=== PATIENT | female | born 1990 | race Two or more races ===

== ENCOUNTER 2022-10-27 10:04 | Observation (INO) | payer MEDICAID ==
[~2022-10-27 10:04] MED LIST: PREN-96 PO
== END 2022-10-27 12:00 | disposition home or self-care (01) ==
LOC: LDRP 10:04 → UNDOADMOB 10:04 → LDRP 10:35 → UNDODISOB 12:00
PROVIDERS: ADMIT Obstetrics & Gynecology; ATTEND Obstetrics & Gynecology
DX: O24.414 Gestational diabetes mellitus in pregnancy, insulin controlled (principal); Z3A.34 34 weeks gestation of pregnancy; Z79.4 Long term (current) use of insulin
CPT/HCPCS: 59025; 76818; 81002; 82948; G0378

== ENCOUNTER 2022-10-30 11:05 | Observation (INO) | payer MEDICAID | END 2022-10-30 12:22 | disposition home or self-care (01) | LOC: LDRP 11:05 | PROVIDERS: ADMIT Obstetrics & Gynecology; ATTEND Obstetrics & Gynecology | DX: O24.419 Gestational diabetes mellitus in pregnancy, unspecified control (principal); O99.323 Drug use complicating pregnancy, third trimester; F12.90 Cannabis use, unspecified, uncomplicated; Z3A.34 34 weeks gestation of pregnancy | CPT/HCPCS: 59025; 76818; 81002; 82948; 82962; 94760; G0378 ==

== ENCOUNTER 2022-11-03 14:03 | Observation (INO) | payer MEDICAID ==
[2022-11-03] MEDS ORDERED: INSU1INJ19 SC (17:27)
== END 2022-11-03 17:42 | disposition home or self-care (01) ==
LOC: LDRP 16:09 → UNDOADMOB 16:12
PROVIDERS: ADMIT Obstetrics & Gynecology; ATTEND Obstetrics & Gynecology
DX: O24.414 Gestational diabetes mellitus in pregnancy, insulin controlled (principal); Z3A.35 35 weeks gestation of pregnancy
CPT/HCPCS: 59025; 76818; 81002; 82948; 82962; G0378

== ENCOUNTER → 2022-11-04 | Outpatient (CLI) | payer MEDICAID ==
[~2022-11-04] MED LIST changes: +INSU1INJ19 SC
[2022-11-04 10:27] LABS: Basophils # (auto) 0 10 ^3/uL (0-0.2); Basophils % (auto) 0.1 % (0.0-2.0); Eosinophils # (auto) 0.1 10 ^3/uL (0-0.8); Eosinophils % (auto) 0.6 % (0.0-7.0); Hematocrit 35.5 % (36.0-46.0); Hemoglobin 11.7 g/dL (12.2-16.2); Lymphocytes # (auto) 2.5 10 ^3/uL (0.4-5.4); Lymphocytes % (auto) 27.2 % (10.0-50.0); Mean Corpuscular Hemoglobin 29.2 pg (28.0-32.0); Mean Corpuscular Hgb Conc. 33.1 g/dL (32.0-36.0); Mean Corpuscular Volume 88.5 fL (80.0-100.0); Monocytes # (auto) 0.4 10 ^3/uL (0-1.3); Monocytes % (auto) 4.2 % (0.0-12.0); Neutrophils # (auto) 6.3 10 ^3/uL (1.6-8.6); Neutrophils % (auto) 67.9 % (37.0-80.0); Nucleated Red Blood Cells % 0.1 %; Red Blood Cells 4.02 10^6/uL (4.0-5.20); Red Cell Distribution Width 13.3 % (11.8-14.3); White Blood Cell 9.2 10^3/uL (4.4-10.8)
[2022-11-05 07:07] LABS: RPR Non Reactive (Non Reactive)
== END | disposition home or self-care (01) ==
LOC: LAB 10:17
PROVIDERS: ATTEND Obstetrics & Gynecology
DX: Z34.83 Encounter for supervision of other normal pregnancy, third trimester (principal); Z3A.36 36 weeks gestation of pregnancy
CPT/HCPCS: 36415; 84112; 85025; 86592

== ENCOUNTER 2022-11-18 09:10 | Observation (INO) | payer MEDICAID | END 2022-11-18 10:30 | disposition home or self-care (01) | LOC: UNDOADMOB 09:10 → LDRP 09:10 → UNDODISOB 10:30 | PROVIDERS: ADMIT Obstetrics & Gynecology; ATTEND Obstetrics & Gynecology | DX: O24.419 Gestational diabetes mellitus in pregnancy, unspecified control (principal); O99.323 Drug use complicating pregnancy, third trimester; F12.90 Cannabis use, unspecified, uncomplicated; Z3A.37 37 weeks gestation of pregnancy | CPT/HCPCS: 59025; 81002; 82948; 82962; 94760; G0378 ==

== ENCOUNTER 2022-11-21 09:05 | Observation (INO) | payer MEDICAID | END 2022-11-21 10:58 | disposition home or self-care (01) | LOC: LDRP 09:05 | PROVIDERS: ADMIT Obstetrics & Gynecology; ATTEND Obstetrics & Gynecology | DX: O24.419 Gestational diabetes mellitus in pregnancy, unspecified control (principal); O99.323 Drug use complicating pregnancy, third trimester; F12.90 Cannabis use, unspecified, uncomplicated; Z3A.37 37 weeks gestation of pregnancy | CPT/HCPCS: 59025; 76818; 81002; 82948; 82962; 94760; G0378 ==

== ENCOUNTER 2022-11-24 08:06 | Observation (INO) | payer MEDICAID | END 2022-11-24 10:30 | disposition home or self-care (01) | LOC: UNDOADMOB 09:09 → LDRP 09:09 → UNDODISOB 10:30 | PROVIDERS: ADMIT Obstetrics & Gynecology; ATTEND Obstetrics & Gynecology | DX: O24.419 Gestational diabetes mellitus in pregnancy, unspecified control (principal); O99.323 Drug use complicating pregnancy, third trimester; F12.90 Cannabis use, unspecified, uncomplicated; Z3A.38 38 weeks gestation of pregnancy | CPT/HCPCS: 59025; 76818; 81002; 82948; 82962; 94760; G0378 ==

== ENCOUNTER 2022-11-26 07:51 | Observation (INO) | payer MEDICAID | END 2022-11-26 10:49 | disposition home or self-care (01) | LOC: UNDOADMOB 09:24 → LDRP 09:24 | PROVIDERS: ADMIT Obstetrics & Gynecology; ATTEND Obstetrics & Gynecology | DX: O24.414 Gestational diabetes mellitus in pregnancy, insulin controlled (principal); O99.323 Drug use complicating pregnancy, third trimester; F12.90 Cannabis use, unspecified, uncomplicated; Z3A.38 38 weeks gestation of pregnancy; Z79.4 Long term (current) use of insulin | CPT/HCPCS: 59025; 76818; 81002; 82948; 82962; 94760; G0378 ==

== ENCOUNTER 2022-11-29 07:00 | Observation (INO) | payer MEDICAID | END 2022-11-29 08:16 | disposition home or self-care (01) | LOC: LDRP 07:00 | PROVIDERS: ADMIT Obstetrics & Gynecology; ATTEND Obstetrics & Gynecology | DX: O24.419 Gestational diabetes mellitus in pregnancy, unspecified control (principal); O99.323 Drug use complicating pregnancy, third trimester; F12.90 Cannabis use, unspecified, uncomplicated; Z3A.39 39 weeks gestation of pregnancy; Z91.040 Latex allergy status | CPT/HCPCS: 59025; 76818; 81002; 82948; 82962; 94760; G0378 ==

== ENCOUNTER 2022-12-01 07:01 | Inpatient (IN) | payer MEDICAID ==
[~2022-12-01] VITALS: Ht 157.5 cm; Wt 105.2 kg
[2022-12-01] MEDS ORDERED: LIDOCAINE 2%HCL (LOCAL ANESTH.) INJ 20ML MDV IJ PRN (07:30)
[2022-12-01] MEDS ORDERED: LACT. RINGERS/OXYTOCIN 20UNITS 500 ML IV ONE ×2 (07:30→08:00)
[2022-12-01] MEDS ORDERED: TERBUTALINE SULFATE 1 MG/ML 1ML VIAL SC PRN (07:30)
[2022-12-01] MEDS ORDERED: PHISODERM TOP SOLN 240ML BTL TOP PRN (07:30)
[2022-12-01] MEDS ORDERED: WITCH HAZEL-GLYCERIN PAD TOP PRN (07:30)
[2022-12-01] MEDS ORDERED: PROMETHAZINE HCL 25 MG/ML 1ML IM PRN (07:30)
[2022-12-01] MEDS ORDERED: PROMETHAZINE HCL 25 MG/ML 1ML IV PRN (07:30)
[2022-12-01] MEDS ORDERED: DERMOPLAST 60ML BOTTLE TOP PRN (07:30)
[2022-12-01] MEDS ORDERED: BUTORPHANOL TARTRATE 2 MG/1 ML VIAL IV PRN ×2 (07:30)
[2022-12-01] MEDS: miSOPROStol 50 MCG per PRE-CUT 1/2 TAB PO PRN ×4 (07:44→20:44)
[2022-12-01 07:54] LABS: Basophils # (auto) 0 10 ^3/uL (0-0.2); Basophils % (auto) 0.2 % (0.0-2.0); Eosinophils # (auto) 0.1 10 ^3/uL (0-0.8); Eosinophils % (auto) 1.2 % (0.0-7.0); Hematocrit 32.9 % (36.0-46.0); Hemoglobin 11.4 g/dL (12.2-16.2); Lymphocytes # (auto) 2.1 10 ^3/uL (0.4-5.4); Lymphocytes % (auto) 25.8 % (10.0-50.0); Mean Corpuscular Hemoglobin 30.6 pg (28.0-32.0); Mean Corpuscular Hgb Conc. 34.8 g/dL (32.0-36.0); Mean Corpuscular Volume 88.2 fL (80.0-100.0); Monocytes # (auto) 0.4 10 ^3/uL (0-1.3); Monocytes % (auto) 4.4 % (0.0-12.0); Neutrophils # (auto) 5.7 10 ^3/uL (1.6-8.6); Neutrophils % (auto) 68.4 % (37.0-80.0); Red Blood Cells 3.73 10^6/uL (4.0-5.20); Red Cell Distribution Width 14.1 % (11.8-14.3); White Blood Cell 8.3 10^3/uL (4.4-10.8)
[2022-12-01 08:07] LABS: Albumin 2.4 g/dL (3.4-5.0); Calcium 8.2 mg/dL (8.5-10.1); Potassium 3.7 mmol/L (3.5-5.1)
[2022-12-01 08:09] LABS: Alcohol, Urine < 3.0 mg/dL (0-10); Amphetamine Screen, Urine NEGATIVE (NEGATIVE); Barbiturate Scree,Urine NEGATIVE (NEGATIVE); Benzodiazephine Screen, Urine NEGATIVE (NEGATIVE); Cannabinoid Screen, Urine NEGATIVE (NEGATIVE); Cocaine Screen, Urine NEGATIVE (NEGATIVE); Opiate Scree,Urine NEGATIVE (NEGATIVE); Phencyclidine Screen, Urine NEGATIVE (NEGATIVE)
[2022-12-01 08:10] LABS: BUN/Creatinine Ratio 13.6; Bilirubin, Total 0.4 mg/dL (0.2-1.0); Total Protein 6.4 g/dL (6.4-8.2)
[2022-12-01] MEDS: LACTATED RINGER'S 1,000 ML IV SCH ×3 (08:10→21:57)
[2022-12-01 08:20] LABS: Urine Bacteria FEW /hpf (None Seen); Urine Blood Negative /uL (Negative); Urine Mucus FEW (None Seen); Urine Specific Gravity 1.018 (1.001-1.035); Urine WBC 3 /hpf (0 - 5)
[2022-12-01 08:25] LABS: INR 0.9 (0.9-1.15); Partial Thromboplastin Time 26.5 sec (24.6-33.4)
[2022-12-01] MEDS ORDERED: ACCU-CHEK COMFORT CURVE STRIP VI SCH (10:00)
[2022-12-01] MEDS ORDERED: NALOXONE HCL 0.4 MG/ML VIAL IV ONE ×2 (20:15→20:30)
[2022-12-01] MEDS ORDERED: ePHEDrine SULFATE 50 MG/ML AMP IV ONE ×2 (20:15→20:30)
[2022-12-01] MEDS ORDERED: LACTATED RINGER'S 1,000 ML IV ONE (20:15)
[2022-12-01] MEDS ORDERED: LIDOCAINE HCL 2 %PF INJ 10ML AMP IJ ONE (20:30)
[2022-12-01] MEDS ORDERED: LIDOCAINE 1%-Mpf/Epinephrine 1:200,000 IJ ONE (20:30)
[2022-12-01] MEDS ORDERED: fentaNYL CITRATE 100 MCG/2 ML VL IV ONE (20:30)
[2022-12-01] MEDS ORDERED: ROPIVACAINE HCL 200 ML EPI SCH (20:30)
[2022-12-01 21:15] LABS: Basophils # (auto) 0 10 ^3/uL (0-0.2); Basophils % (auto) 0.2 % (0.0-2.0); Eosinophils # (auto) 0.1 10 ^3/uL (0-0.8); Eosinophils % (auto) 0.9 % (0.0-7.0); Hematocrit 32.1 % (36.0-46.0); Hemoglobin 10.9 g/dL (12.2-16.2); Lymphocytes # (auto) 2.2 10 ^3/uL (0.4-5.4); Lymphocytes % (auto) 25.8 % (10.0-50.0); Mean Corpuscular Hemoglobin 30.1 pg (28.0-32.0); Mean Corpuscular Volume 88.5 fL (80.0-100.0); Monocytes # (auto) 0.4 10 ^3/uL (0-1.3); Monocytes % (auto) 4.4 % (0.0-12.0); Neutrophils # (auto) 5.8 10 ^3/uL (1.6-8.6); Neutrophils % (auto) 68.7 % (37.0-80.0); Nucleated Red Blood Cells % 0.1 %; Red Blood Cells 3.63 10^6/uL (4.0-5.20); Red Cell Distribution Width 14.4 % (11.8-14.3); White Blood Cell 8.4 10^3/uL (4.4-10.8)
[2022-12-01] MEDS: ROPIVACAINE HCL 200 ML EPI SCH (21:27)
[2022-12-02] VITALS (13 sets, daily range): BP systolic 112–170; BP diastolic 61–89
[2022-12-02] MEDS ORDERED: METHYLERGONOVINE MALEATE 0.2 MG/ML AMP IM PRN (01:30)
[2022-12-02] MEDS ORDERED: TERBUTALINE SULFATE 1 MG/ML 1ML VIAL SC PRN (01:30)
[2022-12-02] MEDS ORDERED: miSOPROStol 100 mcg TAB SL PRN (01:30)
[2022-12-02] MEDS ORDERED: LACT. RINGERS/OXYTOCIN 20UNITS 1,000 ML IV SCH (01:30)
[2022-12-02] MEDS ORDERED: LACT. RINGERS/OXYTOCIN 20UNITS 500 ML IV ONE (02:00)
[2022-12-02] MEDS: LACT. RINGERS/OXYTOCIN 20UNITS 1,000 ML IV SCH ×2 (02:44→07:30)
[2022-12-02] MEDS: LACTATED RINGER'S 1,000 ML IV SCH ×2 (04:35→15:47)
[2022-12-02] MEDS ORDERED: OXYTOCIN 10UNIT/ML 1ML VIAL ONE (05:44)
[2022-12-02] MEDS ORDERED: OXYTOCIN 10UNIT/ML 1ML VIAL IM ONE (05:45)
[2022-12-02 06:06] LABS: RPR Non Reactive (Non Reactive)
[2022-12-02] MEDS ORDERED: MIDAZOLAM HCL 2MG/2ML 2ml VIAL (1mg/ml) ONE ×2 (07:58→08:29)
[2022-12-02] MEDS ORDERED: ONDANSETRON HCL 4 MG/2 ML VIAL ONE (07:58)
[2022-12-02] MEDS ORDERED: MORPHINE SULF PF 5 MG/10 ML VIAL ONE (07:58)
[2022-12-02] MEDS ORDERED: fentaNYL CITRATE 100 MCG/2 ML VL ONE (07:58)
[2022-12-02] MEDS ORDERED: LIDOCAINE HCL 2 %PF INJ 10ML AMP IJ ONE (07:58)
[2022-12-02] MEDS ORDERED: oxyTOCIN 10 UNIT/ML 10ML VIAL ONE (07:58)
[2022-12-02] MEDS ORDERED: SODIUM BICARBONATE INFANT SYR 10 ML SYRG IV ONE (07:58)
[2022-12-02] MEDS ORDERED: ceFAZolin 1GM/50ML 100 ML IV ONE (08:00)
[2022-12-02] MEDS ORDERED: ceFAZolin 2 GM in D5W 5% 100 ML IV ONE (08:00)
[2022-12-02] MEDS ORDERED: ONDANSETRON HCL 4 MG/2 ML VIAL IV PRN (08:15)
[2022-12-02] MEDS ORDERED: ceFAZolin 1GM/50ML 50 ML IV SCH (08:15)
[2022-12-02] MEDS ORDERED: LACT. RINGERS/OXYTOCIN 20UNITS 1,000 ML IV ONE (08:15)
[2022-12-02] MEDS ORDERED: GUM (CHEWING) 1 GUM CHEW CHEW ONE (08:15)
[2022-12-02] MEDS: ACETAMINOPHEN IV 1000 MG/100ML (10MG/ML) IV PRN ×2 (10:50→22:28)
[2022-12-02] MEDS ORDERED: KETOROLAC TROMETH 30 MG/ML 1ML VIAL IV ONE (11:00)
[2022-12-02] MEDS ORDERED: NALOXONE HCL 0.4 MG/ML VIAL IV PRN (11:00)
[2022-12-02] MEDS ORDERED: diphenhdrAMINE HCL 50 MG/1 ML VL IV PRN (11:00)
[2022-12-02] MEDS ORDERED: ACCU-CHEK COMFORT CURVE STRIP VI ONE (11:00)
[2022-12-02] MEDS ORDERED: HYDROmorphone HCL 2 MG/ML VL/or syr IV PRN ×2 (11:00)
[2022-12-02] MEDS ORDERED: METOCLOPRAMIDE HCL 5MG/ml INJ 2ml VIAL IV PRN (11:00)
[2022-12-02] MEDS ORDERED: MORPHINE SULFATE 4 MG/ML SYR/VIAL IV PRN (11:00)
[2022-12-02] MEDS: ROPIVACAINE HCL 200 ML EPI SCH (11:17)
[2022-12-02] MEDS: ceFAZolin 1GM/50ML 50 ML IV SCH (16:37)
[2022-12-02] MEDS: ACCU-CHEK COMFORT CURVE STRIP VI SCH ×2 (19:45→22:26)
[2022-12-02 21:30] LABS: Basophils # (auto) 0 10 ^3/uL (0-0.2); Basophils % (auto) 0.2 % (0.0-2.0); Eosinophils # (auto) 0 10 ^3/uL (0-0.8); Hematocrit 29.7 % (36.0-46.0); Hemoglobin 10.2 g/dL (12.2-16.2); Lymphocytes # (auto) 1.6 10 ^3/uL (0.4-5.4); Lymphocytes % (auto) 12.8 % (10.0-50.0); Mean Corpuscular Hemoglobin 30.7 pg (28.0-32.0); Mean Corpuscular Hgb Conc. 34.2 g/dL (32.0-36.0); Mean Corpuscular Volume 89.7 fL (80.0-100.0); Monocytes # (auto) 0.5 10 ^3/uL (0-1.3); Monocytes % (auto) 4.1 % (0.0-12.0); Neutrophils # (auto) 10.3 10 ^3/uL (1.6-8.6); Neutrophils % (auto) 82.9 % (37.0-80.0); Nucleated Red Blood Cells % 0.1 %; Red Blood Cells 3.32 10^6/uL (4.0-5.20); Red Cell Distribution Width 14.3 % (11.8-14.3); White Blood Cell 12.4 10^3/uL (4.4-10.8)
[2022-12-03] MEDS: ceFAZolin 1GM/50ML 50 ML IV SCH ×2 (00:39→08:08)
[2022-12-03] MEDS: LACTATED RINGER'S 1,000 ML IV SCH (00:39)
[2022-12-03 03:10] VITALS: BP 116/71
[2022-12-03] MEDS: ACCU-CHEK COMFORT CURVE STRIP VI SCH (07:00)
[2022-12-03 07:08] LABS: Basophils # (auto) 0 10 ^3/uL (0-0.2); Basophils % (auto) 0.2 % (0.0-2.0); Eosinophils # (auto) 0 10 ^3/uL (0-0.8); Eosinophils % (auto) 0.3 % (0.0-7.0); Hematocrit 26.7 % (36.0-46.0); Hemoglobin 9.3 g/dL (12.2-16.2); Lymphocytes # (auto) 2.5 10 ^3/uL (0.4-5.4); Lymphocytes % (auto) 25.9 % (10.0-50.0); Mean Corpuscular Hemoglobin 30.8 pg (28.0-32.0); Mean Corpuscular Hgb Conc. 34.9 g/dL (32.0-36.0); Mean Corpuscular Volume 88.3 fL (80.0-100.0); Monocytes # (auto) 0.5 10 ^3/uL (0-1.3); Monocytes % (auto) 5.6 % (0.0-12.0); Neutrophils # (auto) 6.6 10 ^3/uL (1.6-8.6); Red Blood Cells 3.02 10^6/uL (4.0-5.20); Red Cell Distribution Width 14.1 % (11.8-14.3); White Blood Cell 9.7 10^3/uL (4.4-10.8)
[2022-12-03 07:10] VITALS: BP 129/80
[2022-12-03] MEDS: ACETAMINOPHEN IV 1000 MG/100ML (10MG/ML) IV PRN (08:08)
[2022-12-03] MEDS ORDERED: BISACODYL 10 MG RECT SUPP PR PRN (08:19)
[2022-12-03] MEDS ORDERED: LACTATED RINGER'S 1,000 ML IV SCH (08:19)
[2022-12-03 10:45] VITALS: BP 116/75
[2022-12-03 15:00] VITALS: BP 111/70
[2022-12-03] MEDS: HYDROcodone-ACET 5/325MG TAB PO PRN ×2 (15:25→23:58)
[2022-12-03 19:00] VITALS: BP 126/66
[2022-12-03] MEDS: SIMETHICONE 80 MG CHEWABLE TABLET PO SCH ×2 (19:22→23:55)
[2022-12-03] MEDS: IBUPROFEN 800 MG TAB PO PRN (19:22)
[2022-12-03 23:00] VITALS: BP 134/75
[2022-12-03] MEDS: DOCUSATE SOD 100 MG CAP PO SCH (23:56)
[2022-12-04 03:00] VITALS: BP 119/84
[2022-12-04] MEDS: IBUPROFEN 800 MG TAB PO PRN ×3 (03:49→16:28)
[2022-12-04] MEDS: SIMETHICONE 80 MG CHEWABLE TABLET PO SCH ×4 (05:58→22:27)
[2022-12-04 07:00] VITALS: BP 136/86
[2022-12-04] MEDS: DOCUSATE SOD 100 MG CAP PO SCH ×2 (10:00→22:27)
[2022-12-04] MEDS: DOCUSATE CALCIUM 240 MG CAP PO SCH (10:00)
[2022-12-04 11:00] VITALS: BP 138/81
[2022-12-04] MEDS: HYDROcodone-ACET 5/325MG TAB PO PRN ×2 (12:09→20:16)
[2022-12-04] MEDS ORDERED: HYDR-4902 PO (15:25)
[2022-12-04] MEDS ORDERED: DOCU-94 PO (15:25)
[2022-12-04] MEDS ORDERED: IBUP800T27 PO (15:25)
[2022-12-04 19:30] VITALS: BP 144/80
[2022-12-04 22:30] VITALS: BP 135/76
[2022-12-05] MEDS: IBUPROFEN 800 MG TAB PO PRN (00:28)
[2022-12-05 03:15] VITALS: BP 118/67
[2022-12-05] MEDS: HYDROcodone-ACET 5/325MG TAB PO PRN ×2 (03:25→07:15)
[2022-12-05] MEDS: SIMETHICONE 80 MG CHEWABLE TABLET PO SCH (05:36)
[2022-12-05 07:16] VITALS: BP 111/60
[2022-12-05] MEDS: DOCUSATE SOD 100 MG CAP PO SCH (09:35)
[2022-12-05] MEDS: DOCUSATE CALCIUM 240 MG CAP PO SCH (09:35)
[2022-12-05 09:47] VITALS: BP 111/60
== END 2022-12-05 09:47 | disposition home or self-care (01) | DRG 540 ==
LOC: LDRP 07:01
PROVIDERS: ADMIT Obstetrics & Gynecology; ATTEND Obstetrics & Gynecology
PROC: 10D00Z1 Extraction of Products of Conception, Low, Open Approach (ICD-10-PCS; principal; 2022-12-02 08:02)
DX: O24.429 Gestational diabetes mellitus in childbirth, unspecified control (principal); O61.9 Failed induction of labor, unspecified; E66.01 Morbid (severe) obesity due to excess calories; Z20.822 Contact with and (suspected) exposure to COVID-19; O99.214 Obesity complicating childbirth; O34.211 Maternal care for low transverse scar from previous cesarean delivery; O62.1 Secondary uterine inertia; Z91.199 Patient's noncompliance with other medical treatment and regimen due to unspecified reason; Z3A.39 39 weeks gestation of pregnancy; Z37.0 Single live birth
CPT/HCPCS: 36415; 59025; 62282; 76815; 80053; 80307; 81001; 81002; 82948; 82962; 85025; 85610; 85730; 86592; 86850; 86870; 86900; 86901; 87426; 94760; 94762; 96360; 96361; 96366; G0378; J0131; J0690; J2250; J2405; J2590; J7060

== ENCOUNTER → 2023-10-22 | Outpatient (CLI) | payer MEDICAID ==
[~2023-10-22] MED LIST changes: +DOCU-94 PO; +HYDR-4902 PO; +IBUP-1456 PO
[2023-10-22 07:22] LABS: Basophils # (auto) 0 10 ^3/uL (0-0.2); Basophils % (auto) 0.3 % (0.0-2.0); Eosinophils # (auto) 0.2 10 ^3/uL (0-0.8); Eosinophils % (auto) 2.2 % (0.0-7.0); Hematocrit 40.4 % (36.0-46.0); Hemoglobin 13.7 g/dL (12.2-16.2); Lymphocytes # (auto) 2.8 10 ^3/uL (0.4-5.4); Lymphocytes % (auto) 32.3 % (10.0-50.0); Mean Corpuscular Hemoglobin 31.3 pg (28.0-32.0); Mean Corpuscular Hgb Conc. 33.8 g/dL (32.0-36.0); Mean Corpuscular Volume 92.4 fL (80.0-100.0); Monocytes # (auto) 0.4 10 ^3/uL (0-1.3); Neutrophils # (auto) 5.3 10 ^3/uL (1.6-8.6); Neutrophils % (auto) 60.2 % (37.0-80.0); Red Blood Cells 4.37 10^6/uL (4.0-5.20); Red Cell Distribution Width 13.1 % (11.8-14.3); White Blood Cell 8.8 10^3/uL (4.4-10.8)
[2023-10-22 08:00] LABS: Alanine Aminotransferase 20 U/L (7-40); Alkaline Phosphatase 98 U/L (46-116); Anion Gap 9 (5-15); Aspartate Aminotransferase 17 U/L (13-40); BUN/Creatinine Ratio 11.6 (10.0-20.0); Blood Urea Nitrogen 8 mg/dL (9-23); Calcium 9.2 mg/dL (8.5-10.1); Carbon Dioxide 23 mmol/L (20-30); Chloride 106 mmol/L (98-107); Glucose 92 mg/dL (74-106); LDL Cholesterol 81 mg/dL (< 100); Potassium 3.5 mmol/L (3.5-5.1); Sodium 138 mmol/L (136-145); Triglycerides 75 mg/dL (< 150)
[2023-10-22 08:01] LABS: Cholesterol 127 mg/dL (< 200); HDL Cholesterol 40 mg/dL (40-59)
[2023-10-22 08:02] LABS: Total Protein 7.7 g/dL (5.7-8.2)
[2023-10-26 09:07] LABS: D001-IgE D pteronyssinus <0.10 kU/L (Class 0); E005-IgE Dog Dander 6.48 kU/L (Class IV); G002-IgE Bermuda Grass 0.96 kU/L (Class II); IgE Alternaria alternata <0.10 kU/L (Class 0); IgE Cedar, Mountain 5.84 kU/L (Class IV); IgE Cockroach, German 0.34 kU/L (Class I); IgE Cottonwood 0.53 kU/L (Class I); IgE Elm, American 0.57 kU/L (Class II); IgE Mouse Urine <0.10 kU/L (Class 0); IgE Mugwort 1.51 kU/L (Class III); IgE Penicillium chrysogen <0.10 kU/L (Class 0); IgE Ragweed, Short >100 kU/L (Class VI); IgE Rye, Perennial 0.59 kU/L (Class II); Immunoglobulin E 997 IU/mL (6-495); M002-IgE Cladosporium herbaru <0.10 kU/L (Class 0); M003-IgE Aspergillus fumigatu <0.10 kU/L (Class 0); T007-IgE Oak, White 0.55 kU/L (Class I); T009-IgE Olive Tree 0.51 kU/L (Class I); T019-IgE Mimosa/Acacia 0.55 kU/L (Class I); W011-IgE Thistle, Russian 0.52 kU/L (Class I); W014-IgE Pigweed, Rough 0.51 kU/L (Class I)
== END | disposition home or self-care (01) ==
LOC: LAB 07:05
PROVIDERS: ATTEND Nurse Practitioner Family
DX: J30.2 Other seasonal allergic rhinitis (principal); E66.9 Obesity, unspecified; Z86.32 Personal history of gestational diabetes
CPT/HCPCS: 36415; 80053; 80061; 82043; 82785; 83036; 84439; 84443; 85025

== ENCOUNTER → 2024-11-09 | Outpatient (CLI) | payer MEDICAID ==
[2024-11-09 07:36] LABS: Basophils # (auto) 0 10 ^3/uL (0-0.2); Basophils % (auto) 0.2 % (0.0-2.0); Eosinophils # (auto) 0.2 10 ^3/uL (0-0.8); Eosinophils % (auto) 2.4 % (0.0-7.0); Hematocrit 35.9 % (36.0-46.0); Hemoglobin 12.5 g/dL (12.2-16.2); Lymphocytes # (auto) 2.5 10 ^3/uL (0.4-5.4); Lymphocytes % (auto) 29.7 % (10.0-50.0); Mean Corpuscular Hemoglobin 31.8 pg (28.0-32.0); Mean Corpuscular Hgb Conc. 34.8 g/dL (32.0-36.0); Mean Corpuscular Volume 91.5 fL (80.0-100.0); Monocytes # (auto) 0.4 10 ^3/uL (0-1.3); Monocytes % (auto) 4.4 % (0.0-12.0); Neutrophils # (auto) 5.3 10 ^3/uL (1.6-8.6); Neutrophils % (auto) 63.3 % (37.0-80.0); Platelet Count (auto) 299 10^3/uL (140-450); Red Blood Cells 3.93 10^6/uL (4.0-5.20); Red Cell Distribution Width 13.4 % (11.8-14.3); White Blood Cell 8.4 10^3/uL (4.4-10.8)
[2024-11-09 08:02] LABS: Chloride 106 mmol/L (98-107); Potassium 3.6 mmol/L (3.5-5.1); Sodium 137 mmol/L (136-145)
[2024-11-09 08:03] LABS: Anion Gap 9 (5-15); Calcium 9.3 mg/dL (8.7-10.4); Carbon Dioxide 22 mmol/L (20-31)
[2024-11-09 08:08] LABS: Glucose 103 mg/dL (74-106); Triglycerides 131 mg/dL (< 150)
[2024-11-09 08:09] LABS: LDL Cholesterol 57 mg/dL (< 100)
[2024-11-09 08:10] LABS: Cholesterol 121 mg/dL (< 200); HDL Cholesterol 47 mg/dL (40-59)
[2024-11-09 08:14] LABS: Thyroid Stimulating Hormone 0.56 uIU/mL (0.55-4.78)
[2024-11-09 08:19] LABS: Blood Urea Nitrogen 6 mg/dL (9-23)
[2024-11-09 14:38] LABS: Amphetamine Screen, Urine Neg (NEGATIVE); Barbiturate Scree,Urine Neg (NEGATIVE); Benzodiazephine Screen, Urine Neg (NEGATIVE); Cannabinoid Screen, Urine Pos (NEGATIVE); Cocaine Screen, Urine Neg (NEGATIVE); Opiate Scree,Urine Neg (NEGATIVE); Phencyclidine Screen, Urine Neg (NEGATIVE)
[2024-11-10 07:06] LABS: RPR Non Reactive (Non Reactive)
[2024-11-10 08:06] LABS: Varicella Zoster IgG Antibody Reactive (Non Reactive)
== END | disposition home or self-care (01) ==
LOC: LAB 07:06
PROVIDERS: ATTEND Obstetrics & Gynecology
DX: Z34.80 Encounter for supervision of other normal pregnancy, unspecified trimester (principal); Z36.0 Encounter for antenatal screening for chromosomal anomalies; Z31.430 Encounter of female for testing for genetic disease carrier status for procreative management; N39.0 Urinary tract infection, site not specified; Z3A.00 Weeks of gestation of pregnancy not specified
CPT/HCPCS: 36415; 80048; 80061; 80307; 83036; 84439; 84443; 84702; 85025; 86592; 86703; 86762; 86787; 86850; 86900; 86901; 87086; 87340; 87902

== ENCOUNTER → 2024-11-23 | Outpatient (CLI) | payer MEDICAID | END | disposition home or self-care (01) | LOC: LAB 07:26 | PROVIDERS: ATTEND Obstetrics & Gynecology | DX: Z34.80 Encounter for supervision of other normal pregnancy, unspecified trimester (principal); Z36.0 Encounter for antenatal screening for chromosomal anomalies; Z31.430 Encounter of female for testing for genetic disease carrier status for procreative management; N39.0 Urinary tract infection, site not specified | CPT/HCPCS: 82951 ==

== ENCOUNTER 2025-04-12 07:35 | Observation (INO) | payer MEDICAID ==
[~2025-04-12] VITALS: Ht 157.5 cm; Wt 103.0 kg
--- NOTE | 2025-04-18 11:12 | DVH ---
BIOPHYSICAL PROFILE HISTORY: GDMA1 Comparison Study: BPP on DOS: 11/29/22, BPP on DOS: 11/26/22, BPP on DOS: 11/24/22, BPP on DOS: 11/21/22, B PP on DOS: 11/03/22 TECHNIQUE: Multiple real-time grayscale sonographic images through the gravid uterus of the fetus wi th duplex Doppler color flow and M-mode spectral analysis FINDINGS: BIOPHYSICAL PROFILE: breathing score: 2 movement score: 2 tone score: 2 Quantitative [place] score: 2 ([place]O: 14.6 Cm.) Total score: 8 The cervix is not visualized Single live fetus in cephalic presentation. heart rate 145 beats per minute. Posterior placenta without previa or abruption IMPRESSION: Biophysical profile score: 8
--- NOTE | 2025-04-18 12:21 | DVHDS2 ---
Physician Discharge Progress N Final Diagnosis: gdm 34wks Operations or Procedures: Operations or Procedures nst reactive reviewed,sono Condition on Discharge: Good Disposition: Home Discharge Instructions: Diet: Consistent carbohydrate Activity: Light activity Medications: na Follow Up Care: Specialist: 1w Discharge Statement: "Patient was advised to return to the ER or call 911 if any headaches, dizziness, shortness of breath, chest pain, abdominal pain, bleeding, fevers, or worsening of medical condition. Patient was counseled about treatment plan, medications, possible side effects, patientverbalized understanding. All questions were answered to the best of my ability. This discharge took greater then 30 minutes in planning, reviewing document ation, counseling the patient, and discussing with other team members." Visit Coding OBGYN Date of Service: April 18, 2025 Billing Provider: TAMIKA ANDERSON DO PLASTER PATTERN CASTER Common Visit Codes: [id number] OBS CARE (HIGH) PLASTER PATTERN CASTER Procedure Codes: 48932-38- NON-STRESS TEST TAMIKA ANDERSON DO April 18, 2025 12:21
== END 2025-04-18 12:24 | disposition home or self-care (01) ==
LOC: LDRP 04-18 10:00 → UNDOADMOB 04-18 10:00 → LDRP 04-18 10:16
PROVIDERS: ADMIT Obstetrics & Gynecology; ATTEND Obstetrics & Gynecology
DX: O24.419 Gestational diabetes mellitus in pregnancy, unspecified control (principal); Z3A.34 34 weeks gestation of pregnancy; Z79.899 Other long term (current) drug therapy
CPT/HCPCS: 59025; 76819; 81002; 82948; 82962; 94760; G0378

== ENCOUNTER 2025-04-25 05:57 | Observation (INO) | payer MEDICAID ==
[~2025-04-25] VITALS: Ht 157.5 cm; Wt 105.7 kg
--- NOTE | 2025-04-27 14:21 | DVHDS2 ---
Physician Discharge Progress N Final Diagnosis: gdm 35wks Operations or Procedures: Operations or Procedures nst reviwed reactive Condition on Discharge: Good Disposition: Home Discharge Instructions: Diet: Consistent carbohydrate Activity: Light activity Medications: na Follow Up Care: Specialist: 1w Discharge Statement: "Patient was advised to return to the ER or call 911 if any headaches, dizziness, shortness of breath, chest pain, abdominal pain, bleeding, fevers, or worsening of medical condition. Patient was counseled about treatment plan, medications, possible side effects, patientverbalized understanding. All questions were answered to the best of my ability. This discharge took greater then 30 minutes in planning, reviewing documentation, counseling the patient, and discussing with other team members." Visit Coding OBGYN Date of Service: Apr 25, 2025 Billing Provider: TAMIKA ANDERSON DO AUTO APPRENTICE MECHANIC Common Visit Codes: [id number] OBS CARE (HIGH) AUTO APPRENTICE MECHANIC Procedure Codes: 51764-03- NON-STRESS TEST TAMIKA ANDERSON DO Apr 27, 2025 14:21
== END 2025-04-25 10:45 | disposition home or self-care (01) ==
LOC: UNDOADMOB 09:38 → LDRP 09:38
PROVIDERS: ADMIT Obstetrics & Gynecology; ATTEND Obstetrics & Gynecology
DX: O24.419 Gestational diabetes mellitus in pregnancy, unspecified control (principal); Z3A.35 35 weeks gestation of pregnancy; Z79.899 Other long term (current) drug therapy
CPT/HCPCS: 59025; 81002; 82948; 82962; 94760; G0378

== ENCOUNTER 2025-04-25 09:50 | Outpatient (CLI) | payer MEDICAID ==
[2025-04-25 10:10] LABS: Basophils # (auto) 0 10 ^3/uL (0-0.2); Basophils % (auto) 0.3 % (0.0-2.0); Eosinophils # (auto) 0.1 10 ^3/uL (0-0.8); Eosinophils % (auto) 0.7 % (0.0-7.0); Hematocrit 35.7 % (36.0-46.0); Hemoglobin 12.2 g/dL (12.2-16.2); Lymphocytes % (auto) 22.2 % (10.0-50.0); Mean Corpuscular Hemoglobin 30.5 pg (28.0-32.0); Mean Corpuscular Hgb Conc. 34.3 g/dL (32.0-36.0); Monocytes # (auto) 0.3 10 ^3/uL (0-1.3); Monocytes % (auto) 3.4 % (0.0-12.0); Neutrophils # (auto) 6.7 10 ^3/uL (1.6-8.6); Neutrophils % (auto) 73.4 % (37.0-80.0); Platelet Count (auto) 248 10^3/uL (140-450); Red Blood Cells 4.01 10^6/uL (4.0-5.20); Red Cell Distribution Width 13.2 % (11.8-14.3); White Blood Cell 9.1 10^3/uL (4.4-10.8)
[2025-04-28 04:07] LABS: Chlamydia Trachomatis, NAA Negative (Negative); Neisseria gonorrhoeae, NAA Negative (Negative)
== END 2025-04-25 17:00 | disposition home or self-care (01) ==
LOC: LAB 09:50
PROVIDERS: ATTEND Obstetrics & Gynecology
DX: Z34.83 Encounter for supervision of other normal pregnancy, third trimester (principal); Z72.51 High risk heterosexual behavior; Z3A.35 35 weeks gestation of pregnancy
CPT/HCPCS: 36415; 85025; 86780

== ENCOUNTER 2025-05-02 07:51 | Observation (INO) | payer MEDICAID ==
--- NOTE | 2025-05-02 12:16 | DVH ---
BIOPHYSICAL PROFILE HISTORY: GDMA1 TECHNIQUE: Multiple transabdominal real-time grayscale sonographic images through the gravid uterus of the fetus with duplex Doppler color flow and M-mode spectral analysis FINDINGS: BIOPHYSICAL PROFILE: breathing score: 2 movement score: 2 tone score: 2 Quantitative [place] score: 2 ([place]O: 13.5 Cm.) Total score: 8 heart rate 140 beats per minute. Grade I posterior placenta without previa or abruption Biophysical profile score 8/8 IMPRESSION: Biophysical profile score: 8
--- NOTE | 2025-05-02 12:50 | DVHDS2 ---
Physician Discharge Progress N Final Diagnosis: gdm,[id number] Operations or Procedures: Operations or Procedures nst REACTIVE REVIWED,SONO Condition on Discharge: Good Disposition: Home Discharge Instructions: Diet: Consistent carbohydrate Activity: No Restrictions, As Tolerated Medications: NA Follow Up Care: Specialist: 1W Discharge Statement: "Patient was advised to return to the ER or call 911 if any headaches, dizziness, shortness of breath, chest pain, abdominal pain, bleeding, fevers, or worsening of medical condition. Patient was counseled about treatment plan, medications, possible side effects, patientverbalized understanding. All questions were answered to the best of my ability. This discharge took greater then 30 minutes in planning, reviewing documentation, counseling the patient, and discussing with other team members." Visit Coding OBGYN Date of Service: May 02, 2025 Billing Provider: TAMIKA ANDERSON DO PANEL INSTRUMENT REPAIRER Common Visit Codes: [id number] OBS CARE (HIGH) PANEL INSTRUMENT REPAIRER Procedure Codes: 43028-95- NON-STRESS TEST TAMIKA ANDERSON DO May 02, 2025 12:50
== END 2025-05-02 12:06 | disposition home or self-care (01) ==
LOC: LDRP 09:51 → UNDOADMOB 09:51 → LDRP 10:03 → UNDODISOB 12:06
PROVIDERS: ADMIT Obstetrics & Gynecology; ATTEND Obstetrics & Gynecology
DX: O24.419 Gestational diabetes mellitus in pregnancy, unspecified control (principal); O62.9 Abnormality of forces of labor, unspecified; Z3A.36 36 weeks gestation of pregnancy; Z79.899 Other long term (current) drug therapy
CPT/HCPCS: 59025; 76819; 81002; 82948; 82962; 94760; G0378

== ENCOUNTER 2025-05-09 08:32 | Observation (INO) | payer MEDICAID ==
--- NOTE | 2025-05-09 10:53 | DVH ---
BIOPHYSICAL PROFILE HISTORY: gdma1 Comparison Study: US BIOPHYSICAL PROFILE on DOS: 05/02/25, US BIOPHYSICAL PROFILE on DOS: 04/18/25, BIO PHYSICAL PROFILE on DOS: 11/29/22, BPP on DOS: 11/29/22, BIOPHYSICAL PROFILE on DOS: 11/26/22 TECHNIQUE: Multiple real-time grayscale sonographic images through the gravid uterus of the fetus wi th duplex Doppler color flow and M-mode spectral analysis FINDINGS: BIOPHYSICAL PROFILE: breathing score: 2 movement score: 2 tone score: 2 Quantitative [place] score: 2 ([place]: 13.5 Cm.) Total score: 8 The cervix is not visualized Single live fetus in cephalic presentation. heart rate 147 beats per minute. Posterior placenta without previa or abruption IMPRESSION: Biophysical profile score: 8
== END 2025-05-09 11:34 | disposition home or self-care (01) ==
LOC: LDRP 10:05 → UNDOADMOB 10:05 → LDRP 10:08
PROVIDERS: ADMIT Obstetrics & Gynecology; ATTEND Obstetrics & Gynecology
DX: O24.419 Gestational diabetes mellitus in pregnancy, unspecified control (principal); O26.893 Other specified pregnancy related conditions, third trimester; N89.8 Other specified noninflammatory disorders of vagina; Z3A.37 37 weeks gestation of pregnancy; Z79.899 Other long term (current) drug therapy
CPT/HCPCS: 59025; 76819; 81002; 82948; 82962; 94760; G0378

== ENCOUNTER 2025-05-16 10:17 | Observation (INO) | payer MEDICAID ==
--- NOTE | 2025-05-16 11:35 | DVH ---
BIOPHYSICAL PROFILE HISTORY: GDMA1 TECHNIQUE: Multiple real-time grayscale sonographic images through the gravid uterus of the fetus wi th duplex Doppler color flow. FINDINGS: BIOPHYSICAL PROFILE: breathing score: 2 movement score: 2 tone score: 2 Quantitative [place] score: 2 Total score: 8 out of 8 Single live intrauterine . Placenta posteriorly positioned. lie cephalic. hear t rate of 156 beats per minute. [place]O 15.8 cm. IMPRESSION: Biophysical profile score: 8 out of 8
--- NOTE | 2025-05-16 13:12 | DVHDS2 ---
Physician Discharge Progress N Final Diagnosis: gdm 38wks Operations or Procedures: Operations or Procedures nst raective manjeet ferguson Condition on Discharge: Good Disposition: Home Discharge Instructions: Diet: Consistent carbohydrate Activity: Light activity Medications: na Follow Up Care: Specialist: wednesday for rcs Discharge Statement: "Patient was advised to return to the ER or call 911 if any headaches, dizziness, shortness of breath, chest pain, abdominal pain, bleeding, fevers, or worsening of medical condition. Patient was counseled about treatment plan, medications, possible side effects, patientverbalized understanding. All questions were answered to the best of my ability. This discharge took greater then 30 minutes in planning, reviewing documentation, counseling the patient, and discussing with other team members." Visit Coding OBGYN Date of Service: May 16, 2025 Billing Provider: TAMIKA ANDERSON DO MANAGER WOUND CARE Common Visit Codes: [id number] OBS CARE (HIGH) MANAGER WOUND CARE Procedure Codes: 84405-96- NON-STRESS TEST TAMIKA ANDERSON DO May 16, 2025 13:12
== END 2025-05-16 11:55 | disposition home or self-care (01) ==
LOC: UNDOADMOB 10:17 → LDRP 10:17 → UNDODISOB 11:55
PROVIDERS: ADMIT Obstetrics & Gynecology; ATTEND Obstetrics & Gynecology
DX: O24.419 Gestational diabetes mellitus in pregnancy, unspecified control (principal); Z98.890 Other specified postprocedural states; Z79.899 Other long term (current) drug therapy; Z3A.38 38 weeks gestation of pregnancy
CPT/HCPCS: 59025; 76819; 81002; 82948; 82962; 94760; G0378

== ENCOUNTER 2025-05-19 07:41 | Inpatient (IN) | payer MEDICAID ==
[~2025-05-19] VITALS: Ht 157.5 cm; Wt 106.6 kg
[2025-05-19 11:22] LABS: Hematocrit 34.9 % (36.0-46.0); Hemoglobin 11.9 g/dL (12.2-16.2); Mean Corpuscular Hemoglobin 30.0 pg (28.0-32.0); Mean Corpuscular Volume 88.2 fL (80.0-100.0); Nucleated Red Blood Cells % 0.0 %
[2025-05-19 11:28] LABS: Urine Protein, UAD Negative (Negative)
[2025-05-19 11:35] LABS: INR 0.92 (0.9-1.15); Partial Thromboplastin Time 26.8 SEC (24.5-34.5); Prothrombin Time 9.8 sec (9.3-11.8)
[2025-05-19 11:38] LABS: Amphetamine Screen, Urine Neg (NEGATIVE); Barbiturate Scree,Urine Neg (NEGATIVE); Benzodiazephine Screen, Urine Neg (NEGATIVE); Cocaine Screen, Urine Neg (NEGATIVE); Opiate Scree,Urine Neg (NEGATIVE)
[2025-05-19 11:39] LABS: Cannabinoid Screen, Urine Neg (NEGATIVE); Phencyclidine Screen, Urine Neg (NEGATIVE)
[2025-05-19 11:42] LABS: Alanine Aminotransferase 10 U/L (7-40); Albumin 3.8 g/dL (3.2-4.8); Anion Gap 10 (5-15); BUN/Creatinine Ratio 15.9 (10.0-20.0); Bilirubin, Total 0.5 mg/dL (0.2-1.0); Blood Urea Nitrogen 10 mg/dL (9-23); Calcium 9.6 mg/dL (8.7-10.4); Carbon Dioxide 23 mmol/L (20-31); Chloride 105 mmol/L (98-107); Potassium 4.1 mmol/L (3.5-5.1); Sodium 138 mmol/L (136-145); Total Protein 6.5 g/dL (5.7-8.2)
[2025-05-19 11:51] LABS: Alkaline Phosphatase 128 U/L (46-116); Glucose 125 mg/dL (74-106)
--- NOTE | 2025-05-19 23:06 | DVHHP ---
ADMIT DATE: 05/20/2025 CHIEF COMPLAINT: Desires repeat section with bilateral tubal ligation. HISTORY OF PRESENT ILLNESS: The patient is a 35-year-old 6, para 4 with EDC 05/29, estimated gestation age of 39 weeks, admitted for repeat section with bilateral tubal ligation. The patient is GDMA2, well controlled. She wishes to have bilateral tubal ligation. Risks, complications, and failure of tubal stabilization, use of Filshie clip discussed with the patient. Options were reviewed and all questions were answered. The patient wishes to proceed with repeat section with BTL. PAST MEDICAL HISTORY: None. PAST SURGICAL HISTORY: . SOCIAL HISTORY: None. FAMILY HISTORY: None. OBSTETRIC AND GYNECOLOGIC HISTORY: Blood type O positive. Rubella immune while section.. REVIEW OF SYSTEMS: Consistent with HPI. PHYSICAL EXAMINATION: VITAL SIGNS: Stable, afebrile. HEENT: Within normal limits. CARDIOVASCULAR: Regular rate and rhythm. LUNGS: Clear to auscultation. BREASTS: Symmetrical. No masses. ABDOMEN: Gravid. Positive heart. PELVIC: 1 cm, 50%, -2. EXTREMITIES: No clubbing, cyanosis, or edema. IMPRESSION: * Intrauterine with gestational diabetes mellitus type 2. * Previous section. * Desires repeat section. * Desires bilateral tubal ligation. * Against medical advice. * Morbid obesity. PLAN: Repeat section with bilateral tubal ligation. Informed consent obtained. Risks and complications of surgery including infection, bleeding, hematoma formation, injury to bowel or bladder, surrounding organ, possibility of DVT, pulmonary embolus, and risks of anesthesia were discussed with the patient. Options were reviewed. All questions were answered. The patient fully understands. Failure rate with tubal stabilization, use of Filshie clip discussed with the patient. The patient wishes to proceed with the planned procedure. DO MAY Schneider/KARIE TID: [id number] RECEIPT: [id number]
[2025-05-20] VITALS (12 sets, daily range): BP systolic 100–144; BP diastolic 51–75; PULSE 61–71; RESP 12–18; TEMP 98–98.6; O2SAT 95–98
[2025-05-20] MEDS: LACTATED RINGER'S 1,000 ML IV SCH (05:08)
[2025-05-20] MEDS: LACTATED RINGER'S 1,000 ML IV ONE (05:08)
[2025-05-20] MEDS ORDERED: MORPHINE SULF PF 5 MG/10 ML VIAL ONE (06:54)
[2025-05-20] MEDS ORDERED: fentaNYL CITRATE 100 MCG/2 ML VL ONE (06:55)
[2025-05-20] MEDS ORDERED: ONDANSETRON HCL 4 MG/2 ML VIAL ONE (06:55)
[2025-05-20] MEDS: ceFAZolin 2 GM/D5W50ml 50 ML IV ONE (07:00)
[2025-05-20] MEDS ORDERED: ceFAZolin 1GM/50ML 50 ML IV SCH (07:30)
[2025-05-20] MEDS ORDERED: ONDANSETRON HCL 4 MG/2 ML VIAL IV PRN ×2 (07:30→08:45)
[2025-05-20] MEDS ORDERED: GUM (CHEWING) 1 GUM CHEW CHEW ONE (07:30)
--- NOTE | 2025-05-20 08:06 | DVHOP2 ---
Operative Report DATE OF OPERATION: 05/20/25 PREOPERATIVE DIAGNOSES: 1. Term , desires repeat section. 2. Desires bilateral tubal ligation,AMA,MORBID OBESITY POSTOPERATIVE DIAGNOSES: 1. Term , desires repeat section. 2. Desires bilateral tubal ligation,AMA,MORBID OBESITY PROCEDURES: Repeat section with bilateral tubal ligation via Filschie Clips SURGEON: Marivel Cruz D.O./JEANNINE ANESTHESIOLOGIST: JAVIER DAVENPORT TYPE OF ANESTHESIA : SPINAL ESTIMATED BLOOD LOSS: 800 mL CONSENT: The patient was informed of the risks and benefits of the procedure. These include but are not limited to , complications of anesthesia, postoperative infection, incomplete relief of symptoms, recurrence of symptoms, damage to blood vessels, nerves and tendons, deep venous thrombosis, pulmonary embolism and possible need for repeat surgery in the future. Surgery was opted. FINDINGS: Baby [F] with apgars [8] and [9]. Grossly normal appearing tubes and ovaries. TISSUE TO PATHOLOGY: Placenta. PROCEDURE IN DETAIL: The patient was taken to the operating room where she was placed under spinal anesthesia. She was then prepped and draped in the usual sterile manner in supine position with a leftward tilt. A Pfannenstiel skin incision was then made 2 cm above the symphysis pubis. This incision was january d to the underlying layer of fascia. The fascia was nicked in the midline and the incision was extended laterally. The superior aspect of the fascial incision was grasped and elevated. Underlying rectus muscle was dissected off bluntly. The same procedure was done to the inferior aspect of the fascial incision. The rectus muscles were then in the midline. Peritoneum was identified and entered. Peritoneal incision was extended superiorly and inferiorly with good visualization of the bladder. Bladder blade was inserted. Vesicouterine peritoneum was identified and entered. Lower uterine segment was incised in a transverse fashion. The was delivered from vertex presentation. The infant was baby [F] with Apgars of [8] and [9]. Placenta was then removed manually. Uterus was exteriorized and cleared off all clots and debris. Uterine incision was repaired using 0 Vicryl in a double-layered fashion. No bleeding was noted. Bilateral tubal ligation was then performed using Jere. Placed in the ampullary region and identifying the fimbria distally. The isthmic portion of the right tube was clipped using Filschie Clip. The same procedure was done on the opposite side. No bleeding was noted. Peritoneum was closed using 0 Vicryl, fascia was closed using 0 Maxon, and skin was closed using duncan. Estimated blood loss was noted to be 500 mL. The patient tolerated the procedure well. She was taken to the recovery room in stable condition. Visit Coding OBGYN Date of Service: May 20, 2025 Billing Provider: MARIVEL CRUZ DO SKIRT TRIMMER Common Visit Codes: [id number] INP/OBS CARE (HIGH) SKIRT TRIMMER Procedure Codes: [id number] DELIVERY ONLY MARIVEL CRUZ DO May 20, 2025 08:06
--- NOTE | 2025-05-20 08:09 | POSTOP ---
Post-Operative Note Post-Operative Note Preop Diagnosis TERM PREG DESIRES RCS,AMA,GDMA2,MORBID OBESITY DESIRES RCS WITH BTL Postop Diagnosis: SAME Operation performed RCS WITH BTL FILSCHIE Specimen BABY GIRL,APGARS 8-9 Anesthesia: Regional Anesthesiologist: JAVIER Blood Loss(fluid mgmt) 800ML Surgeon Tamika Cruz Claim Processor JEANNINE Implant FILSCHIEW Complications & Mgmt NONE Date 05/20/25 Time 08:07 Visit Coding OBGYN Date of Service: May 20, 2025 Billing Provider: TAMIKA CRUZ DO EDUCATION SUPERVISOR Common Visit Codes: [id number] INP/OBS CARE (HIGH) EDUCATION SUPERVISOR Procedure Codes: [id number] DELIVERY ONLY TAMIKA CRUZ DO May 20, 2025 08:09
[2025-05-20] MEDS ORDERED: IBUP-1456 PO (08:11)
[2025-05-20] MEDS ORDERED: HYDR-4072 PO (08:11)
[2025-05-20] MEDS ORDERED: DOCU-94 PO (08:11)
[2025-05-20] MEDS ORDERED: diphenhdrAMINE HCL 50 MG/1 ML VL IV PRN (08:45)
[2025-05-20] MEDS ORDERED: NALOXONE HCL 0.4 MG/ML VIAL IV PRN (08:45)
[2025-05-20] MEDS: LACT. RINGERS/OXYTOCIN 20UNITS 1,000 ML IV ONE (10:04)
[2025-05-20] MEDS: NALBUPHINE HCL 10 MG/1ml INJECTION IV ONE (10:04)
[2025-05-20] MEDS: ACETAMINOPHEN IV 1000 MG/100ML (10MG/ML) IV PRN (10:22)
[2025-05-20] MEDS: ONDANSETRON HCL 4 MG/2 ML VIAL IV PRN (10:31)
[2025-05-20] MEDS: ceFAZolin 1GM/50ML 50 ML IV SCH (14:50)
[2025-05-20 21:11] LABS: Hematocrit 32.3 % (36.0-46.0); Hemoglobin 11.1 g/dL (12.2-16.2); Mean Corpuscular Hemoglobin 30.3 pg (28.0-32.0); Mean Corpuscular Volume 88.0 fL (80.0-100.0); Nucleated Red Blood Cells % 0.0 %
[2025-05-21] VITALS (11 sets, daily range): BP systolic 99–145; BP diastolic 51–84; PULSE 61–81; RESP 17–20; TEMP 98–98.2; O2SAT 95–98
--- NOTE | 2025-05-21 06:06 | DVHPN2 ---
Progress Note Date Seen: May 21, 2025 Subjective S: Lochia minimal. Advancing diet well tolerated. Ambulating and voiding well w/o feeling dizzy or lightheaded. Pain relieved with analgesics. Passing flatus but no BM yet. w/o problem vital signs Vital Sign Date Time Temp Pulse Resp B/P (MAP) Pulse Ox O2 Delivery O2 Flow Rate FiO2 05/20/25 23:00 98.6 68 17 117/58 (77) 96 98.6 05/20/25 19:00 Room Air 05/20/25 08:38 97 Total Intake and Output 05/20/25 05/20/25 05/21/25 15:00 23:00 07:00 Output Total 470 ml 150 ml 1150 ml Balance -470 ml -150 ml -1150 ml medications Current Medications Medications Dose Ordered Sig/Cortez Route Start Time Stop Time Status Last Admin Dose Admin Lactated Ringer's 1,000 ml @ 125 mls/hr Q8H IV 05/20/25 04:30 05/20/25 10:22 125 MLS/HR Diphenhydramine HCl 25 mg Q4HP PRN IV 05/20/25 08:45 Cefazolin Sodium 50 ml @ 100 mls/hr Q8H IV 05/20/25 15:00 05/21/25 07:29 05/20/25 23:09 100 MLS/HR Ondansetron HCl 4 mg Q4HP PRN IV 05/20/25 09:30 05/20/25 19:49 4 MG Acetaminophen 1,000 mg Q8HPRN PRN IV 05/20/25 09:30 05/21/25 09:29 05/21/25 05:21 1,000 MG laboratory and microbiology Laboratory Tests 05/20/25 20:53 05/19/25 10:37 Test 05/19/25 10:37 Range/Units Serum Glucose 125 H 74-106 mg/dL Objective A&O x3 NAD. Afebrile, VSS Chest: heart and lung sounds normal. Breasts: Nipples intact w/o cracks or soreness Abdomen: normal BS, soft, non-tender, no rebound or guarding, fundus firm @ U- 1, Lower abdominal Incision site with Sylke on, same clean, dry and intact. No edema, erythema or induration Extremities: no edema or tenderness Lochia - minimal Assessment/Plan 35yo now Post operative & ppd #1 s/p Repeat Section with BTL, doing well. Blood Type: O Rh: Positive Breast feeding Rubella Immune Pain control with oral medications Bowel regimen: Increase fluid intake and fiber in diet, ambulate. Laxative PRN Contraception Plan: Had BTL Supportive Care Plan discussed with: Patient, Spouse Visit Coding OBGYN Date of Service: May 21, 2025 Billing Provider: DEANDRA MONZON CNM METER REPAIRER HELPER Common Visit Codes: [id number] INP/OBS CARE(HIGH) DEANDRA MONZON CNM May 21, 2025 06:06
[2025-05-21 09:21] LABS: Hematocrit 30.7 % (36.0-46.0); Hemoglobin 10.5 g/dL (12.2-16.2); Mean Corpuscular Hemoglobin 30.2 pg (28.0-32.0); Mean Corpuscular Volume 88.6 fL (80.0-100.0); Nucleated Red Blood Cells % 0.0 %
[2025-05-21] MEDS: IBUPROFEN 800 MG TAB PO PRN (09:36)
[2025-05-21] MEDS: DOCUSATE SOD 100 MG CAP PO SCH (12:18)
[2025-05-21] MEDS: SIMETHICONE 80 MG CHEWABLE TABLET PO SCH (12:18)
[2025-05-21] MEDS: HYDROcodone-ACET 5/325MG TAB PO PRN (16:12)
[2025-05-22] MEDS: HYDROcodone-ACET 5/325MG TAB PO PRN (01:58)
--- NOTE | 2025-05-22 05:46 | DVHPN2 ---
Chief Complaints Patient reports: No new complaints, Feels better Nursing reports: No new complaints, No abdominal pain, No chest pain, No dizziness, No cough Objective Vitals Vital Signs Date Time Temp Pulse Resp B/P (MAP) Pulse Ox O2 Delivery O2 Flow Rate FiO2 05/21/25 22:11 98.1 05/21/25 22:00 78 17 145/84 (104) 98 05/21/25 19:00 Room Air 05/20/25 08:38 97 Medications Current Medications Medications (Trade) Dose Ordered Sig/Cortez Route PRN Reason Start Time Stop Time Status Last Admin Acetaminophen/ Hydrocodone Bitart ([place] 5/325MG Tab) 1 tab Q4HPRN PRN PO FOR PAIN 1-6 05/22/25 02:00 05/22/25 01:58 Acetaminophen/ Hydrocodone Bitart ([place] 5/325MG Tab) 2 tab Q4HPRN PRN PO FOR PAIN 7-05/21/25 08:00 05/21/25 16:12 Dimethicone (Mylicon Tab) 80 mg QID PO 05/21/25 12:00 05/22/25 01:58 Docusate Sodium (Colace Capsule) 100 mg Q12HR PO 05/21/25 10:00 05/22/25 01:58 Ibuprofen (Motrin Tablet) 800 mg Q8HP PRN PO BREAKTHROUGH PAIN 05/21/25 08:00 05/21/25 22:11 General: Normal Neck: Normal Lungs: Normal Cardiovascular: Normal Abdominal: Normal Musculoskeletal: Normal Extremities: Normal Skin: Normal Neurological: Normal Studies Laboratory Tests 05/21/25 08:37 05/19/25 10:37 Test 05/19/25 10:37 Range/Units Serum Glucose 125 H 74-106 mg/dL Ass/Plan Assessment POD #1 : primary surgeon notified of patient's desire to go home early as her was transferred to [facility] intensive [facility]. Patient ambulating minimal lochia pain well controlled eating passing flatus there is no reason to detain her at this point she understands the risks benefits complications alternatives to leaving her early. Despite these risks we will allow her to be discharge at noon. Plan See DC summary See DC orders LEROY NOVAO DO May 22, 2025 05:46
--- NOTE | 2025-05-22 05:49 | DVHDS2 ---
Discharge Summary Date of Admission May 20, 2025 at 04:00 Date of Discharge: May 22, 2025 Admitting Diagnosis Repeat c/s btl Wounds: C/D/I Labs/Diagnostic Data: Laboratory Results Test 05/21/25 08:37 05/20/25 05:25 05/19/25 10:37 05/19/25 10:15 White Blood Count 8.7 10^3/uL (4.4-10.8) Red Blood Count 3.46 10^6/uL (4.0-5.20) Hemoglobin 10.5 g/dL (12.2-16.2) Hematocrit 30.7 % (36.0-46.0) Mean Corpuscular Volume 88.6 fL (80.0-100.0) Mean Corpuscular Hemoglobin 30.2 pg (28.0-32.0) Mean Corpuscular Hemoglobin Concent 34.1 g/dL (32.0-36.0) Red Cell Distribution Width 13.2 % (11.8-14.3) Platelet Count 193 10^3/uL (140-450) Mean Platelet Volume 9.7 fL (6.9-10.8) Neutrophils (%) (Auto) 66.6 % (37.0-80.0) Lymphocytes (%) (Auto) 28.3 % (10.0-50.0) Monocytes (%) (Auto) 4.6 % (0.0-12.0) Eosinophils (%) (Auto) 0.4 % (0.0-7.0) Basophils (%) (Auto) 0.1 % (0.0-2.0) Neutrophils # (Auto) 5.8 10 ^3/uL (1.6-8.6) Lymphocytes # (Auto) 2.4 10 ^3/uL (0.4-5.4) Monocytes # (Auto) 0.4 10 ^3/uL (0-1.3) Eosinophils # (Auto) 0 10 ^3/uL (0-0.8) Basophils # (Auto) 0 10 ^3/uL (0-0.2) Nucleated Red Blood Cells 0.0 % POC Glucose 119 mg/dl (70-106) Prothrombin Time 9.8 sec (9.3-11.8) Prothrombin Time INR 0.92 (0.9-1.15) Activated Partial Thromboplast Time 26.8 SEC (24.5-34.5) Sodium Level 138 mmol/L (136-145) Potassium Level 4.1 mmol/L (3.5-5.1) Chloride Level 105 mmol/L (98-107) Carbon Dioxide Level 23 mmol/L (20-31) Anion Gap 10 (5-15) Blood Urea Nitrogen 10 mg/dL (9-23) Creatinine 0.63 mg/dL (0.550-1.02) Glomerular Filtration Rate Calc 118 mL/min (>90) BUN/Creatinine Ratio 15.9 (10.0-20.0) Serum Glucose 125 mg/dL (74-106) Calcium Level 9.6 mg/dL (8.7-10.4) Total Bilirubin 0.5 mg/dL (0.2-1.0) Aspartate Amino Transferase (AST) 19 U/L (<34) Alanine Aminotransferase (ALT) 10 U/L (7-40) Alkaline Phosphatase 128 U/L (46-116) Total Protein 6.5 g/dL (5.7-8.2) Albumin 3.8 g/dL (3.2-4.8) Treponema pallidum Antibody Non-reactive (Negative) Hepatitis C Antibody Negative (Negative) Urine Color Light-yellow (Yellow) Urine Clarity Clear (Clear) Urine pH 6.0 (5.0-9.0) Urine Specific [place] 1.019 (1.001-1.035) Urine Protein Negative (Negative) Urine Ketones Negative (Negative) Urine Blood Negative /uL (Negative) Urine Nitrite Negative (Negative) Urine Bilirubin Negative (Negative) Urine Urobilinogen Normal mg/dL (Negative) Urine Leukocyte Esterase Negative /uL (Negative) Urine RBC 1 /hpf (0 - 4) Urine Microscopic WBC 3 /HPF (0-5) Urine Squamous Epithelial Cells Few /hpf (<5) Urine Bacteria Few /hpf (None Seen) Urine Mucus Few (None Seen) Urine Glucose Normal mg/dL (Normal) Urine Opiates Screen Neg (NEGATIVE) Urine Fentanyl Screen Neg (NEGATIVE) Urine Barbiturates Screen Neg (NEGATIVE) Urine Phencyclidine Screen Neg (NEGATIVE) Urine Amphetamines Screen Neg (NEGATIVE) Urine Benzodiazepines Screen Neg (NEGATIVE) Urine Cocaine Screen Neg (NEGATIVE) Urine Cannabinoids Screen Neg (NEGATIVE) Other Laboratory Tests 05/21/25 08:37 05/19/25 10:37 Brief Hx & Hospital Course: C/S no complications Operations or Procedures C/S BTL Condition at Discharge: Good Final Diagnosis/Problems List SAME Discharge Disposition: Home Discharge Instruct/Medications Diet: Regular Scheduled Docusate Sodium (Colace), 1 CAP PO BID Docusate Sodium (Colace), 1 CAP PO BID Insulin Glargine (Basaglar Kwikpen), 12 UNIT SC DAILY, (Reported) Vit W/ Ferrous Fumara ( One Daily), 1 TAB PO DAILY, (Reported) Scheduled PRN Hydrocodone-Acetaminophen (Hydrocodone Bitartrate/AC 5-325 mg), 1 TAB PO Q6HPRN PRN Hydrocodone-Acetaminophen (Hydrocodone/Acetaminophen 10-325 mg), 1 TAB PO Q6HPRN PRN Ibuprofen (Ibuprofen), 800 MG PO TID PRN Ibuprofen (Ibuprofen), 800 MG PO TID PRN Discharge Statement: "Patient was advised to return to the ER or call 911 if any headaches, dizziness, shortness of breath, chest pain, abdominal pain, bleeding, fevers, or worsening of medical condition. Patient was counseled about treatment plan, medications, possible side effects, patientverbalized understanding. All questions were answered to the best of my ability. This discharge took greater then 30 minutes in planning, reviewing documentation, counseling the patient, and discussing with other team members." ASSESSMENT ASSESSMENT Assessment SAME Visit Coding OBGYN Date of Service: May 22, 2025 Billing Provider: LEROY NOVOA DO SENIOR WEALTH ADVISOR Common Visit Codes: [id number] INP/OBS CARE(HIGH) SENIOR WEALTH ADVISOR Procedure Codes: [id number] OB CARE, DEL LEROY NOVOA DO May 22, 2025 05:49
[2025-05-22 07:00] VITALS: BP 142/78; PULSE 104; RESP 20; TEMP 97.8; O2SAT 97
== END 2025-05-22 08:40 | disposition home or self-care (01) | DRG 539 ==
LOC: LDRP 05-20 04:00 → PREOBSVTOIN 05-20 04:19 → LDRP 05-21 11:55
PROVIDERS: ADMIT Obstetrics & Gynecology; ATTEND Obstetrics & Gynecology
PROC: 0UB70ZZ Excision of Bilateral Fallopian Tubes, Open Approach (ICD-10-PCS; 2025-05-20)
PROC: 10D00Z1 Extraction of Products of Conception, Low, Open Approach (ICD-10-PCS; principal; 2025-05-20 07:16)
DX: O34.211 Maternal care for low transverse scar from previous cesarean delivery (principal); E66.01 Morbid (severe) obesity due to excess calories; O99.214 Obesity complicating childbirth; Z37.0 Single live birth; Z3A.39 39 weeks gestation of pregnancy; Z30.2 Encounter for sterilization; O24.424 Gestational diabetes mellitus in childbirth, insulin controlled
CPT/HCPCS: 36415; 59025; 80053; 80307; 81001; 82962; 85025; 85610; 85730; 86780; 86803; 86850; 86900; 86901; 94760; 94762; 96360; 96361; 96374; 96375; G0378; J0131; J1100; J2405; J2590